=== PATIENT | female | born 1950 | race Caucasian/White ===

== ENCOUNTER 2016-07-26 11:04 | Day surgery (SDC) | payer OTHER ==
[~2016-07-26] VITALS: Ht 170.2 cm; Wt 106.6 kg
[~2016-07-26 11:04] MED LIST: ALENDRONATE70 MG PO; AMLODIPINE5 MG PO; CIPROFLOXACN500 MG PO; D31000 UNIT PO; DIAZEPAM5 MG OR; FELDENE20 MG OR; FLEXERIL PO; FUROSEMIDE20 MG PO; GLIPIZIDE ER10 MG OR; HYDROCO/AP10 MG/660 OR; KEFLEX500 MG OR; LORTAB 10-325 M1 TAB PO; LOSARTAN POT100 MG PO; METFORMIN1000 MG OR; METOPROL TAR100 MG PO; METOPROL TAR25 MG PO; NORCO1 TA1 PO; NOVOLIN 70/30 SC; NOVOLIN N U; PAROXETINE20 MG OR; PERCOCET 5/325M1 TAB OR; PIROXICAM20 MG OR; POTASSIUM CHLO20 ME1 PO; PRINZIDE/ZESTOR1 TAB OR; PROCARDIA XL60 MG OR; SOMA350 MG OR; TRAMADOL HCL50 MG PO; TUMS ULTRA 101000 MG PO; TUMS500 MG PO
[2016-07-26 14:28] VITALS: BP 158/96
== END 2016-07-26 14:45 | disposition home or self-care (01) | DRG 552 ==
LOC: ORM 11:04
PROVIDERS: ATTEND Neurological Surgery
PROC: 3E0R33Z Introduction of Anti-inflammatory into Spinal Canal, Percutaneous Approach (ICD-10-PCS; principal; 2016-07-26)
DX: M54.2 Cervicalgia (principal)
CPT/HCPCS: Q9967